=== PATIENT | female | born 1955 | race Caucasian/White ===

== ENCOUNTER → 2017-06-09 | Outpatient (CLI) | payer BC | LOC: M RAD 12:44 | DX: I87.2 Venous insufficiency (chronic) (peripheral) (principal) | CPT/HCPCS: 93970 ==

== ENCOUNTER → 2018-02-08 | Outpatient (CLI) | payer BC ==
--- NOTE | 2018-02-08 16:17 | REP ---
BILATERAL LOWER EXTREMITY DUPLEX DOPPLER ARTERIAL ULTRASOUND: Real-time ultrasound evaluation and duplex Doppler interrogation of the bilateral lower extremity arterial systems is performed. YOSEPH on the right is 1.0 and left 1.1. There is no significant stenosis bilaterally with only minimal scattered intimal thickening. There is no significant plaque seen bilaterally. Normal flow velocities and Doppler spectral wave forms are identified. There are triphasic and biphasic wave forms through both lower extremity arterial systems. RIGHT PEAK SYSTOLIC VELOCITY LEFT PEAK SYSTOLIC VELOCITY Common femoral artery 149 cm/s 128 cm/s Profunda 87 cm/s 110 cm/s Proximal SFA 110 cm/s 94 cm/s Mid-SFA 112 cm/s 114 cm/s Distal SFA 75 cm/s 97 cm/s Popliteal 76 cm/s 59 cm/s Proximal NAIMA 44 cm/s 96 cm/s Tibioperoneal trunk 65 cm/s 65 cm/s Proximal HEALTH INFORMATION CODER 51 cm/s 31 cm/s Distal HEALTH INFORMATION CODER 71 cm/s 85 cm/s Distal NAIMA 64 cm/s 92 cm/s IMPRESSION: No significant plaquing or narrowing and certainly no significant stenosis bilateral lower extremity arterial systems. Electronically Signed by Lei Swartz MD 02/08/2018 04:36 P
== END ==
LOC: M RAD 12:40
PROVIDERS: ATTEND Surgery Vascular Surgery
DX: I73.9 Peripheral vascular disease, unspecified (principal)

== ENCOUNTER → 2018-09-06 | Outpatient (CLI) | payer BC ==
--- NOTE | 2018-09-10 14:31 | REP ---
Clinical: Chronic venous hypertension. Technique: Real time mcgrath scale and color Doppler evaluation using linear high frequency transducer along with reflux evaluation. Findings: Ultrasound examination of the right and left lower extremity deep venous structures from the common femoral vein to the popliteal vein demonstrates normal compressibility flow and wave patterns in response to respiration and augmentation. There is no evidence for deep venous thrombosis. Reflux evaluation of the right lower extremity demonstrates reflux through the deep system as well as the proximal to mid greater saphenous vein. Proximal greater saphenous vein at the saphenofemoral junction measures 6.1 mm diameter with reflux duration 1.6 seconds. Mid greater saphenous vein at the thigh measures 3.9 mm diameter with reflux duration 7.6 seconds. Reflux evaluation of the left lower extremity demonstrates reflux through the superficial system. Proximal greater saphenous vein at the saphenofemoral junction measures 4.8 mm diameter with reflux duration 6.5 seconds. Mid greater saphenous vein measures 3.3 mm diameter with reflux duration 8.2 seconds. Distal greater saphenous vein at the knee measures 2.5 mm diameter with reflux duration 3.5 seconds. Impression: No evidence for deep venous thrombosis. Bilateral reflux as noted above. Electronically Signed by Gabriel Pathak MD 09/10/2018 02:23 P
== END ==
LOC: M RAD 12:58
PROVIDERS: ATTEND Surgery Vascular Surgery
DX: I87.393 Chronic venous hypertension (idiopathic) with other complications of bilateral lower extremity (principal)